=== PATIENT | female | born 1975 | race Caucasian/White ===

== ENCOUNTER 2022-05-19 19:32 | Emergency (ER) | payer OTHER ==
[2022-05-19 19:58] VITALS: BP 110/80; PULSE 88; RESP 16; TEMP 98.4; BMI 25.1
== END 2022-05-19 21:32 | disposition home or self-care (01) ==
LOC: FER 19:32
DX: S00.03XA Contusion of scalp, initial encounter (principal); S09.90XA Unspecified injury of head, initial encounter
CPT/HCPCS: 70450-TC; 99284-25